=== PATIENT | male | born 1955 | race Caucasian/White ===

== ENCOUNTER 2016-09-11 05:15 | Emergency (ER) | payer BC ==
[~2016-09-11] VITALS: Ht 175.3 cm; Wt 81.2 kg
[2016-09-11 05:20] VITALS: BP 148/89; PULSE 79; RESP 16; TEMP 98.6; O2SAT 97
[2016-09-11] MEDS ORDERED: LISI-515 PO (05:29)
--- NOTE | 2016-09-11 05:39 | PD ---
HPI Chief Complaint: Complaint Time Seen by Provider: 05:34 Travel History International Travel<30 days: No Contact w/Intl Traveler<30days: No Traveled to known affect area: No History of Present Illness HPI 61-year-old male presents to the emergency department by private transportation for possible urinary tract infection. Patient states since yesterday has noticed urinary frequency and dysuria. Patient is sexually active with his spouse and no other partners. Patient has noted cloudy urine and a small amount of discharge. No report of injury and no report of testicular pain or mass. Patient has had previous bilateral herniorrhaphy. No abdominal pain. Patient denies fever chills nausea or vomiting. No flank pain. No gross hematuria. Patient has history of hypertension and takes lisinopril. Patient rates his discomfort 5/10 intensity. PFSH Past Medical History Narrative Medical Hypertension; herniorrhaphy; no tobacco use; nursing notes reviewed Social History Tobacco Use: No Allergies-Medications (Allergen,Severity, Reaction): Coded Allergies: No Known Allergies (Unverified , 09/11/16) Reported Meds & Prescriptions Reported Meds & Active Scripts Active Pyridium (Phenazopyridine HCl) 100 Mg Tab 100 Mg PO Q8H PRN Cipro (Ciprofloxacin HCl) 500 Mg Tab 500 Mg PO BID 10 Days Reported Lisinopril 20 Mg Tab 20 Mg PO DAILY Review of Systems Except as stated in HPI: all other systems reviewed are Neg General / Constitutional: No: Fever, Chills HENT: No: Congestion Respiratory: No: Shortness of Breath Gastrointestinal: No: Abdominal Pain Genitourinary: Positive: Urgency, Frequency, Dysuria, No: Flank Pain Musculoskeletal: No: Pain Skin: No Rash Neurologic: No: Weakness Psychiatric: No: Anxiety Hematologic/Lymphatic: No: Lymph Node Enlargement Physical Exam Narrative GENERAL: Well-developed well-nourished male in no acute distress no respiratory distress SKIN: Warm and dry. HEAD: Normocephalic. EYES: No scleral icterus. No injection or drainage. NECK: Supple, trachea midline. No JVD or lymphadenopathy. CARDIOVASCULAR: Regular rate and rhythm without murmurs, gallops, or rubs. RESPIRATORY: Breath sounds equal bilaterally. No accessory muscle use. GASTROINTESTINAL: Abdomen soft, non-tender, nondistended. : Circumcised male scant cloudy urine at the urethral meatus otherwise no focal findings MUSCULOSKELETAL: No cyanosis, or edema. BACK: Nontender without obvious deformity. No CVA tenderness. Data Data Last Documented VS Vital Signs Date Time Temp Pulse Resp B/P Pulse Ox O2 Delivery O2 Flow Rate FiO2 09/11/16 05:20 98.6 79 16 148/89 97 Orders Urinalysis - C+S If Indicated (09/11/16 05:35) Urine Culture (09/11/16 05:38) Ciprofloxacin (Cipro) (09/11/16 06:30) Labs Laboratory Tests Test 09/11/16 05:38 Urine Color YELLOW Urine Turbidity CLOUDY Urine pH 5.5 Urine Specific [place] 1.015 Urine Protein NEG mg/dL Urine Glucose (UA) NEG mg/dL Urine Ketones NEG mg/dL Urine Occult Blood SMALL Urine Nitrite POS Urine Bilirubin NEG Urine Leukocyte Esterase MOD Urine RBC 3-5 /hpf Urine WBC 50-99 /hpf Urine WBC Clumps FEW Urine Squamous Epithelial 0-5 /hpf Cells Urine Bacteria MANY /hpf Microscopic Urinalysis Comment CULTURE INDICATED MDM Medical Decision Making Medical Screen Exam Complete: Yes Emergency Medical Condition: Yes Medical Record Reviewed: Yes Interpretation(s) Urinalysis: Positive nitrites positive leukocyte Estrace positive white blood cells positive bacteria; culture indicated Differential Diagnosis UTI, urethritis, STI, prostatitis Narrative Course Urine specimen collected and sent for resulting Patient informed of abnormal urinalysis; patient given first dose of oral antibiotic Cipro 500 mg by mouth; patient stable for outpatient management Diagnosis Primary Impression: UTI (urinary tract infection) Qualified Code: N30.00 - Acute cystitis without hematuria Referrals: Primary Care Physician call for appointment Patient Instructions: General Instructions Additional Instructions: Increase fluid hydration Complete course of antibiotic as prescribed Take acetaminophen every 4 hours as needed for fever 100.4F or greater and/or ibuprofen/Advil/Motrin every 6-8 hours as needed for fever 100.4F or greater Follow-up with primary care provider Return to the emergency department for any concerns or change condition Med/Other Pt SpecificInfo: Prescription(s) given Scripts Phenazopyridine (Pyridium)100 Mg [id number] Mg PO Q8H PRN (DYSURIA) #6 TAB Ref 0 Prov:Giselle Menchaca MD 09/11/16 Ciprofloxacin (Cipro)500 Mg [id number] Mg PO BID 10 Days Ref 0 Prov:Giselle Menchaca MD 09/11/16 Disposition: 01 DISCHARGE HOME Condition: Stable Giselle Menchaca MD Sep 11, 2016 05:38
[2016-09-11 05:43] LABS: BLOOD, URINE SMALL (NEG); GLUCOSE,URINE NEG (NEG); KETONE, URINE NEG (NEG); PH, URINE 5.5 (5.0-8.5)
[2016-09-11 05:46] LABS: NITRITE,URINE POS (NEG)
[2016-09-11 05:47] LABS: URINE COLOR YELLOW (YELLW/STRAW)
[2016-09-11 05:48] LABS: BACTERIA, URINE MANY /hpf; COMMENT (UR) CULTURE INDICATED; CULTURE IF INDICATED CULTURE INDICATED; SQUAMOUS EPITHELIAL CELL URINE 0-5 /hpf (0-5)
[2016-09-11] MEDS ORDERED: PHEN0.4T PO (06:23)
[2016-09-11] MEDS ORDERED: CIPR-9 PO (06:23)
[2016-09-11] MEDS ORDERED: CIPROFLOXACIN 500 MG TAB PO ONE (06:30)
== END 2016-09-11 06:30 | disposition home or self-care (01) ==
LOC: PHED 05:15
DX: N39.0 Urinary tract infection, site not specified (principal); I10 Essential (primary) hypertension; B96.20 Unspecified Escherichia coli [E. coli] as the cause of diseases classified elsewhere
CPT/HCPCS: 81001; 87077; 87086; 87186; 99283